=== PATIENT | male | born 1960 | race Caucasian/White ===

== ENCOUNTER 2017-10-13 07:51 | Outpatient (CLI) | payer OTHER ==
[2017-10-13 11:34] LABS: BASOPHILS % (AUTO) 0.6 %; EOSINOPHILS # (AUTO) 0.2 10^3/uL (0.0-0.7); EOSINOPHILS % (AUTO) 2.9 %; HGB - HEMOGLOBIN 15.2 g/dL (14.0-18.0); LYMPHOCYTES # (AUTO) 2.4 10^3/uL (1.5-3.5); LYMPHOCYTES % (AUTO) 39.2 %; MEAN CORPUSCULAR HEMOGLOBIN 30.9 pg (27.0-31.0); MEAN CORPUSCULAR HGB CONC 33.9 g/dL (32.0-36.0); MEAN CORPUSCULAR VOLUME 91.2 fL (80.0-94.0); MEAN PLATELET VOLUME 8.3 fL (7.4-11.4); MONOCYTES # (AUTO) 0.5 10^3/uL (0.0-1.0); MONOCYTES % (AUTO) 8.1 %; NEUTROPHILS # (AUTO) 3.1 10^3/uL (1.5-6.6); NEUTROPHILS % (AUTO) 49.2 %; PLT - PLATELET COUNT 211 10^3/uL (130-450); RED BLOOD COUNT 4.91 10^6/uL (4.70-6.10); RED CELL DISTRIBUTION WIDTH 13.7 % (12.0-15.0); WHITE BLOOD COUNT 6.2 x10^3/uL (4.8-10.8)
[2017-10-13 12:01] LABS: ALKALINE PHOSPHATASE 48 IU/L (42-121); ALT ALANINE AMINOTRANSFERASE 37 IU/L (10-60); AST ASPARTATE AMINOTRANSFERASE 30 IU/L (10-42); BILIRUBIN,TOTAL 0.9 mg/dL (0.2-1.0); BUN - BLOOD UREA NITROGEN 20 mg/dL (6-20); CALCIUM 9.2 mg/dL (8.5-10.3); CARBON DIOXIDE - CO2 29 mmol/L (21-32); CHLORIDE 100 mmol/L (101-111); CHOL/HDL RATIO 4.4 (<5.0); CHOLESTEROL 203 mg/dL; GFR - MDRD 77 (>89); GLUCOSE 108 mg/dL (70-100); HDL CHOLESTEROL 46 mg/dL; LDL CHOLESTEROL,CALCULATED 128 mg/dL; LDL/HDL RATIO 2.8 (<3.6); SODIUM 135 mmol/L (135-145); TOTAL PROTEIN 7.9 g/dL (6.7-8.2); VLDL CHOLESTEROL 29 mg/dL
[2017-10-13 12:23] LABS: HB2 TOTAL 16.6 g/dL; HEMOGLOBIN A1C 0.69 g/dL
== END 2017-10-13 07:52 | disposition home or self-care (01) ==
LOC: LAB.F 07:51
PROVIDERS: ATTEND Nurse Practitioner Family
DX: I10 Essential (primary) hypertension (principal); E78.5 Hyperlipidemia, unspecified; Z86.39 Personal history of other endocrine, nutritional and metabolic disease
CPT/HCPCS: 36415; 80053; 80061; 83036; 83721; 84443; 85025

== ENCOUNTER 2018-09-25 10:52 | Outpatient (CLI) | payer OTHER ==
[2018-09-25 17:57] LABS: ALBUMIN 4.2 g/dL (3.2-5.5); ALBUMIN/GLOBULIN RATIO 1.2 (1.0-2.2); ALKALINE PHOSPHATASE 47 IU/L (42-121); ALT ALANINE AMINOTRANSFERASE 33 IU/L (10-60); AST ASPARTATE AMINOTRANSFERASE 31 IU/L (10-42); BILIRUBIN,TOTAL 0.6 mg/dL (0.2-1.0); BUN - BLOOD UREA NITROGEN 23 mg/dL (6-20); CALCIUM 9.3 mg/dL (8.5-10.3); CARBON DIOXIDE - CO2 27 mmol/L (21-32); CHLORIDE 104 mmol/L (101-111); CHOL/HDL RATIO 3.5 (<5.0); CHOLESTEROL 198 mg/dL; CREATININE 0.9 mg/dL (0.6-1.2); GFR - MDRD 86 (>89); GLUCOSE 110 mg/dL (70-100); HDL CHOLESTEROL 57 mg/dL; LDL CHOLESTEROL,CALCULATED 130 mg/dL; LDL/HDL RATIO 2.3 (<3.6); SODIUM 141 mmol/L (135-145); TOTAL PROTEIN 7.6 g/dL (6.7-8.2); VLDL CHOLESTEROL 11 mg/dL
[2018-09-25 18:01] LABS: HB2 TOTAL 15.4 g/dL; HEMOGLOBIN A1C 0.59 g/dL; HEMOGLOBIN A1C % 5.7 % (4.6-6.2)
== END 2018-09-25 10:53 | disposition home or self-care (01) ==
LOC: LAB.S 10:52
PROVIDERS: ATTEND Internal Medicine
DX: E78.5 Hyperlipidemia, unspecified (principal); R73.02 Impaired glucose tolerance (oral); Z12.5 Encounter for screening for malignant neoplasm of prostate
CPT/HCPCS: 36415; 80053; 80061; 83036; 83721; 84153

== ENCOUNTER 2019-09-16 13:30 | Outpatient (CLI) | payer OTHER | END 2019-09-16 23:59 | disposition home or self-care (01) | LOC: LAB 13:30 | PROVIDERS: ATTEND Registered Nurse | DX: Z11.9 Encounter for screening for infectious and parasitic diseases, unspecified (principal) | CPT/HCPCS: 81599 ==

== ENCOUNTER 2019-09-26 10:34 | Outpatient (CLI) | payer OTHER ==
[2019-09-26 15:36] LABS: ALBUMIN 4.7 g/dL (3.2-5.5); ALBUMIN/GLOBULIN RATIO 1.3 (1.0-2.2); ALKALINE PHOSPHATASE 51 IU/L (42-121); ALT ALANINE AMINOTRANSFERASE 46 IU/L (10-60); AST ASPARTATE AMINOTRANSFERASE 35 IU/L (10-42); BILIRUBIN,TOTAL 1.3 mg/dL (0.2-1.0); BUN - BLOOD UREA NITROGEN 23 mg/dL (6-20); CALCIUM 9.5 mg/dL (8.5-10.3); CARBON DIOXIDE - CO2 26 mmol/L (21-32); CHLORIDE 99 mmol/L (101-111); CHOL/HDL RATIO 5.5 (<5.0); CHOLESTEROL 246 mg/dL; GLUCOSE 94 mg/dL (70-100); HDL CHOLESTEROL 45 mg/dL; LDL CHOLESTEROL,CALCULATED 176 mg/dL; LDL/HDL RATIO 3.9 (<3.6); SODIUM 138 mmol/L (135-145); TOTAL PROTEIN 8.4 g/dL (6.7-8.2); VLDL CHOLESTEROL 25 mg/dL
[2019-09-26 15:37] LABS: HB2 TOTAL 16.4 g/dL; HEMOGLOBIN A1C 0.62 g/dL; HEMOGLOBIN A1C % 5.6 % (4.6-6.2)
== END 2019-09-26 10:35 | disposition home or self-care (01) ==
LOC: LAB.S 10:34
PROVIDERS: ATTEND Internal Medicine
DX: E78.5 Hyperlipidemia, unspecified (principal); R73.02 Impaired glucose tolerance (oral); Z12.5 Encounter for screening for malignant neoplasm of prostate; Z11.9 Encounter for screening for infectious and parasitic diseases, unspecified
CPT/HCPCS: 36415; 80053; 80061; 83036; 83721; 84153

== ENCOUNTER 2019-11-25 10:04 | Day surgery (SDC) | payer OTHER ==
[2019-11-25] MEDS ORDERED: fentaNYL 250 MCG/5 ML VIAL IVP ONE (10:05)
[2019-11-25] MEDS ORDERED: MIDAZOLAM 2 MG/2 ML VIAL IVP ONE (10:05)
[2019-11-25] MEDS ORDERED: LACTATED RINGERS 1,000 ML IV ONE (10:43)
[2019-11-25] MEDS ORDERED: LACTATED RINGERS IV ONE (12:52)
[2019-11-25 13:26] VITALS: BP 127/82
== END 2019-11-25 10:05 | disposition home or self-care (01) ==
LOC: SDS 10:04
PROVIDERS: ATTEND Internal Medicine Gastroenterology
PROC: 0DBN8ZZ Excision of Sigmoid Colon, Via Natural or Artificial Opening Endoscopic (ICD-10-PCS; principal; 2019-11-25 11:15)
DX: Z12.11 Encounter for screening for malignant neoplasm of colon (principal); K63.89 Other specified diseases of intestine; Z87.891 Personal history of nicotine dependence; Z80.3 Family history of malignant neoplasm of breast
CPT/HCPCS: 45380; J3010; J7120

== ENCOUNTER 2019-12-17 06:54 | Outpatient (CLI) | payer OTHER ==
[2019-12-17] MEDS ORDERED: IOVERSOL 320 100 ML VIAL IVP ONE ×2 (07:10→13:46)
[2019-12-17] MEDS ORDERED: IOVERSOL 320 50 ML VIAL ONE (07:10)
[2019-12-17] MEDS ORDERED: IOVERSOL 320 50 ML VIAL PO ONE (13:46)
--- NOTE | 2019-12-17 14:25 | CT Report ---
PROCEDURE: Abdomen/Pelvis W INDICATIONS: APPENDICEAL MASS CONTRAST: IV CONTRAST: Optiray 320 ml: 100 PO CONTRAST: Optiray 320 ml50 TECHNIQUE: After the administration of oral and intravenous contrast, 5 mm thick sections acquired from the diap hragms to the symphysis. 5 mm thick coronal and sagittal reformats were acquired. For radiation dos e reduction, the following was used: automated exposure control, adjustment of mA and/or kV accordin g to patient size. COMPARISON: None. FINDINGS: Image quality: Excellent. ABDOMEN: Lung bases: There is mild dependent atelectasis. Heart size is normal. Solid organs: There is hypoattenuation of the liver compatible with fatty infiltration. Gallbladder a ppears within normal limits without calcified gallstones. Biliary system is non dilated. Pancreas en hances normally. No adrenal nodules. The spleen is normal in size. Kidneys demonstrate no hydronephr osis. Peritoneum and bowel: Bowel loops demonstrate normal wall thickness and caliber. 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 The appendix is nondistended and measures up to 0.8 cm, at the upper limits of norm al. No periappendiceal fat stranding or fluid collections. No appendicoliths. No periappendiceal mass lesions or fluid collections. There is colonic diverticulosis without acute diverticulitis. No free fluid or air. Nodes and vessels: No retroperitoneal or mesenteric adenopathy by size criteria. Aorta and inferior vena cava are normal in size. Miscellaneous: No ventral hernias. PELVIS: Genitourinary: Bladder wall thickness is normal. Miscellaneous: No inguinal hernias or adenopathy. Bones: No suspicious bony lesions. No vertebral body compression fractures. IMPRESSION: 1. No appendiceal distention or periappendiceal mass identified. 2. Fat density along the ileocecal junction compatible with lipomatosis of the ileocecal valve. 3. No discrete pericecal or periappendiceal mass identified. 4. Colonic diverticulosis without acute diverticulitis. Reviewed by: Margarito Capps MD on 12/17/2019 1:23 PM AKEVONNE Approved by: Margarito Capps MD on 12/17/2019 1:23 PM [facility] Station ID: [id number]
== END 2019-12-17 06:55 | disposition home or self-care (01) ==
LOC: LAB 06:54
PROVIDERS: ATTEND Surgery
DX: K38.8 Other specified diseases of appendix (principal); K57.30 Diverticulosis of large intestine without perforation or abscess without bleeding
CPT/HCPCS: 36415; 74177; 82565; Q9967

== ENCOUNTER 2019-12-18 14:56 | Outpatient (CLI) | payer OTHER | END 2019-12-18 14:57 | disposition home or self-care (01) | LOC: NS 14:56 | PROVIDERS: ATTEND Internal Medicine | DX: Z71.3 Dietary counseling and surveillance (principal); E78.00 Pure hypercholesterolemia, unspecified; R73.02 Impaired glucose tolerance (oral); E78.5 Hyperlipidemia, unspecified; I10 Essential (primary) hypertension | CPT/HCPCS: 97802 ==

== ENCOUNTER 2020-01-03 11:30 | Outpatient (CLI) | payer OTHER | END 2020-01-03 11:31 | disposition home or self-care (01) | LOC: COV 11:30 | PROVIDERS: ATTEND Surgery | DX: Z01.812 Encounter for preprocedural laboratory examination (principal); Z20.828 Contact with and (suspected) exposure to other viral communicable diseases; K38.8 Other specified diseases of appendix ==

== ENCOUNTER 2020-01-07 10:55 | Day surgery (SDC) | payer OTHER ==
[~2020-01-07 10:55] MED LIST: CEFAZOLIN SODIUM IN 0.9 % NACL 2 GM/100 ML BAG IV ONE; metroNIDAZOLE 500 MG/100 ML 500 MG/100 ML BAG ONE
[2020-01-07] MEDS ORDERED: ONDANSETRON 4 MG/2 ML VIAL IVP ONE (10:56)
[2020-01-07] MEDS ORDERED: MIDAZOLAM 2 MG/2 ML VIAL IVP ONE (10:56)
[2020-01-07] MEDS ORDERED: PROPOFOL 200 MG/20 ML VIAL IVP ONE (10:56)
[2020-01-07] MEDS ORDERED: LIDOCAINE-MPF 2% 5 ML VIAL IM ONE (10:56)
[2020-01-07] MEDS ORDERED: GLYCOPYRROLATE 1 MG/5 ML VIAL IVP ONE (10:56)
[2020-01-07] MEDS ORDERED: ePHEDrine 50 MG/ML VIAL IVP ONE (10:56)
[2020-01-07] MEDS ORDERED: ACETAMINOPHEN 1,000 MG/100 ML 100 ML IV ONE (10:56)
[2020-01-07] MEDS ORDERED: fentaNYL 100 MCG/2 ML VIAL IVP ONE (10:56)
[2020-01-07] MEDS ORDERED: ROCURONIUM 50 MG/5 ML VIAL IVP ONE (10:56)
[2020-01-07] MEDS ORDERED: DEXAMETHASONE 4 MG/ML VIAL IVP ONE (10:56)
[2020-01-07] MEDS ORDERED: NEOSTIGMINE 1 MG/1 ML 10 ML MDV IVP ONE (10:56)
[2020-01-07] MEDS ORDERED: LACTATED RINGERS 1,000 ML IV ONE ×2 (10:58→14:39)
--- NOTE | 2020-01-07 11:16 | ANESTHESIA ---
Pre-Anesthesia VS, & Labs - Diagnosis appendix tumor - Procedure Laparoscopic appendectomy, possible lap colectomy Vital Signs: Temp Pulse Resp BP Pulse Ox 35.9 C L 72 16 142/81 H 97 01/07/20 11:01 01/07/20 11:01 01/07/20 11:01 01/07/20 11:01 01/07/20 11:01 Height: 6 ft Weight (kg): 98 kg Body Mass Index: 29.2 BMI Classification: Overweight - NPO >8 hours - Lab Results Lab results reviewed: Yes Home Medications and Allergies Home Medications: Ambulatory Orders Ascorbic Acid [Vitamin C] 1,000 mg PO DAILY 12/30/19 Multivitamin 1 each PO DAILY 12/30/19 [place]-3S/Dha/Epa/Fish Oil [Fish Oil 1,200 mg Softgel] 1 each PO DAILY 12/30/19 Lisinopril [Zestril] 20 mg PO DAILY 11/22/19 Simvastatin [Zocor] 10 mg PO DAILY 11/22/19 Ascorbic Acid [Vitamin C] 1,000 mg PO DAILY 12/30/19 Multivitamin 1 each PO DAILY 12/30/19 [place]-3S/Dha/Epa/Fish Oil [Fish Oil 1,200 mg Softgel] 1 each PO DAILY 12/30/19 Allergies/Adverse Reactions: Allergies Allergy/AdvReac Type Severity Reaction Status Date / Time No Known Drug Allergies Allergy Verified 11/22/19 14:28 Anes History & Medical History - Anesthetic History Anesthesia Complications: reports: No previous complications Family history of Anesthesia Complications: Denies Family history of Malignant Hyperthermia: Denies - Medical History Cardiovascular: reports: Hypertension, High cholesterol Pulmonary: reports: None Gastrointestinal: reports: None Urinary: reports: None Musculoskeletal: reports: None Endocrine/Autoimmune: reports: None Skin: reports: None - Surgical History General: Colonoscopy Orthopedic: Arthroscopic surgery Exam General: Alert, Oriented x3, Cooperative, No acute distress Dental: WNL Mouth Openin Fingerbreadth Neck Mobility: Normal Mallampati classification: II Respiratory: Lungs clear, Normal breath sounds, No respiratory distress, No accessory muscle use Cardiovascular: Regular rate, Normal S1, Normal S2, No murmurs Plan Anesthesia Type: General Consent for Procedure(s) Verified and Reviewed: Yes Code Status: Attempt Resuscitation ASA classification: 2-Mild systemic disease Is this case an emergency?: No
[2020-01-07] MEDS ORDERED: fentaNYL 100 MCG/2 ML VIAL IVP PRN (12:15)
[2020-01-07] MEDS ORDERED: METOCLOPRAMIDE 10 MG/2 ML VIAL IVP PRN (12:15)
[2020-01-07] MEDS ORDERED: HYDROmorphone 0.5 MG/0.5 ML SYRINGE IVP PRN (12:15)
[2020-01-07] MEDS ORDERED: ONDANSETRON 4 MG/2 ML VIAL IVP PRN ×2 (12:15→14:43)
[2020-01-07] MEDS ORDERED: ATROPINE ABBOJECT 1 MG/10 ML SYRINGE IVP PRN (12:15)
[2020-01-07] MEDS ORDERED: NALOXONE 0.4 MG/ML VIAL IVP PRN (12:15)
[2020-01-07] MEDS ORDERED: ePHEDrine 50 MG/ML VIAL IVP PRN (12:15)
[2020-01-07] MEDS ORDERED: MORPHINE 2 MG/ML CARPUJECT IVP PRN (12:15)
[2020-01-07] MEDS ORDERED: BUPIVACAINE 0.25% PF 30 ML VIAL ONE ×2 (12:35→13:39)
[2020-01-07] MEDS ORDERED: LACTATED RINGERS 1,000 ML IV SCH (13:00)
[2020-01-07] MEDS ORDERED: BUPIVACAINE 0.25% PF 30 ML VIAL SUBQ ONE ×2 (13:26)
[2020-01-07] MEDS ORDERED: HYDROcod/ACETAM 5/325 MG TABLET PO PRN (14:43)
--- NOTE | 2020-01-07 14:48 | OPERATIVE REPORT ---
Operative Report - General Procedure Date: 01/07/20 Planned Procedure: appendectomy with partial cecectomy, possible colectomy Pre-Op Diagnosis: mass base of appendix Procedure Performed: appendectomy with partial cecectomy Post Op Diagnosis: same. smooth mass within the specimen - Procedure Note Primary Surgeon: taya lopez Anesthesia Technique: General ET tube, Local Pathology: specimen sent Estimated Blood Loss (mL): 25 Drain/Tube Type: Other (none) Findings: as above. smooth mass base of appendix Complications: none
[2020-01-07 15:45] VITALS: BP 129/78
--- NOTE | 2020-01-07 16:12 | ANESTHESIA POST OP EVALUATION ---
Anesthesia Post Eval - Post Anesthesia Eval Vitals: Last Vital Signs Temp 36.0 C L 01/07/20 15:13 Pulse 72 01/07/20 15:44 Resp 15 01/07/20 15:44 BP 129/78 01/07/20 15:44 Pulse Ox 93 01/07/20 15:44 CV Function Including HR & BP: positive: Stable Pain Control: positive: Satisfactory Nausea & Vomiting: positive: Negative Mental Status: positive: Baseline Respiratory Status: Airway Patent Hydration Status: Satisfactory Anesthesia Complications: positive: None
--- NOTE | 2020-01-07 18:49 | OPERATIVE REPORT ---
DATE OF SERVICE: 01/07/2020 Physician: Rex Zamudio MD PREOPERATIVE DIAGNOSIS: Mass at base of appendix by recent screening colonoscopy. POSTOPERATIVE DIAGNOSIS: Mass at the base of the appendix. PROCEDURE PERFORMED: Laparoscopic appendectomy with partial cecectomy. SURGEON: Rex Zamudio MD SHIP DESIGN TEACHER: None. ANESTHESIA 1. General endotracheal anesthesia. 2. Local anesthesia with Marcaine. COMPLICATIONS: None. SPECIMEN: Appendix with portion of the cecum sent permanent. ESTIMATED BLOOD LOSS: 25 mL DRAINS: None. INDICATIONS FOR PROCEDURE: Patient is a healthy 59-year-old gentleman who recently underwent screening colonoscopy. He had the appearance of a mass at the base of the appendix that was biopsied. Biopsy was concerning for possible neuroendocrine tumor. He had a CT scan, which was unremarkable. He presents for exploratory laparoscopy, possible laparoscopic appendectomy, possible right colectomy. Risks discussed, and alternatives discussed. All questions answered and consent obtained. DESCRIPTION OF PROCEDURE: Patient was properly identified and brought to the operating room and placed in supine position. He voided prior to surgery. General endotracheal anesthesia was induced. Sequential compression devices were placed. He was prepped and draped in a sterile fashion, given preoperative antibiotics. Local anesthetic was given to incision areas. He had a prior umbilical hernia repair. An incision was made approximately 2 cm caudad and 4 cm left lateral of his umbilicus. Dissection proceeded bluntly down to the fascia. The fascia was incised, lifted upwards and abdomen entered with the Veress needle. An 11 mm trocar was placed was placed with 30-degree scope. There was no evidence of injury from Veress needle or trocar placement. Under direct vision, a 5 mm trocar was placed in the right upper quadrant, and a 5 mm trocar was placed suprapubically. Appendix was grossly normal. There is no evidence of metastatic disease. The lateral peritoneal attachments to the appendix were taken down with hook cautery. On further inspection, there did appear to be a smooth mass at the base of the appendix or adjacent to the cecum. The terminal ileum was partially mobilized further away from the cecum and the appendix by taking down its peritoneal attachments largely with blunt dissection or minimal use of cautery. A plane was created between the mesoappendix and the appendix. The 11 mm trocar was exchanged for a 12 mm trocar and 5 mm scope used. The mesoappendix was divided with an Endo-JULES vascular load. The appendix with a small portion of the cecum was divided close to the terminal ileum; however, without obstructing the terminal ileum. An additional portion of the cecum was obtained with additional Endo-JULES intestinal load. There was slight bleeding at the staple line, which was very lightly cauterized. There were no apparent complications. The abdomen was thoroughly irrigated. Specimen was brought out. He had what appeared to be a smooth, fairly mobile mass within the specimen at the cecum/appendix junction. Specimen was sent permanent for pathology. Trocars were removed under direct vision and CO2 evacuated. Fascia at the larger trocar site was closed with a [id number] 0 Vicryl suture. Skin was closed with buried interrupted 4-0 Monocryl. Dressings were applied. He tolerated the procedure well. Plan is depending on final pathology. TD: 01/07/2020 15:09 TERRY
== END 2020-01-07 10:56 | disposition home or self-care (01) ==
LOC: SDS 10:55
PROVIDERS: ATTEND Surgery
PROC: 0DTJ4ZZ Resection of Appendix, Percutaneous Endoscopic Approach (ICD-10-PCS; principal; 2020-01-07 12:00)
DX: K38.8 Other specified diseases of appendix (principal); I10 Essential (primary) hypertension; E78.5 Hyperlipidemia, unspecified; F17.210 Nicotine dependence, cigarettes, uncomplicated; E66.3 Overweight; Z68.29 Body mass index [BMI] 29.0-29.9, adult
CPT/HCPCS: 44970; J0131; J0690; J7120

== ENCOUNTER 2020-12-23 09:29 | Outpatient (CLI) | payer OTHER ==
[2020-12-23 14:59] LABS: BASOPHILS % (AUTO) 0.5 %; EOSINOPHILS # (AUTO) 0.1 10^3/uL (0.0-0.7); EOSINOPHILS % (AUTO) 1.4 %; HCT - HEMATOCRIT 48.1 % (42.0-52.0); HGB - HEMOGLOBIN 15.9 g/dL (14.0-18.0); LYMPHOCYTES # (AUTO) 2.7 10^3/uL (1.5-3.5); LYMPHOCYTES % (AUTO) 45.8 %; MEAN CORPUSCULAR HEMOGLOBIN 30.9 pg (27.0-31.0); MEAN CORPUSCULAR HGB CONC 33.1 g/dL (32.0-36.0); MEAN CORPUSCULAR VOLUME 93.4 fL (80.0-94.0); MEAN PLATELET VOLUME 9.8 fL (7.4-11.4); MONOCYTES # (AUTO) 0.5 10^3/uL (0.0-1.0); MONOCYTES % (AUTO) 8.9 %; NEUTROPHILS # (AUTO) 2.5 10^3/uL (1.5-6.6); NEUTROPHILS % (AUTO) 43.2 %; PLT - PLATELET COUNT 228 10^3/uL (130-450); RED BLOOD COUNT 5.15 10^6/uL (4.70-6.10); RED CELL DISTRIBUTION WIDTH 13.2 % (12.0-15.0); WHITE BLOOD COUNT 5.8 x10^3/uL (4.8-10.8)
[2020-12-23 15:43] LABS: ALBUMIN 4.6 g/dL (3.2-5.5); ALBUMIN/GLOBULIN RATIO 1.2 (1.0-2.2); ALKALINE PHOSPHATASE 49 IU/L (42-121); ALT ALANINE AMINOTRANSFERASE 39 IU/L (10-60); AST ASPARTATE AMINOTRANSFERASE 26 IU/L (10-42); BILIRUBIN,TOTAL 1.1 mg/dL (0.2-1.0); BUN - BLOOD UREA NITROGEN 19 mg/dL (6-20); CALCIUM 9.7 mg/dL (8.5-10.3); CARBON DIOXIDE - CO2 30 mmol/L (21-32); CHLORIDE 100 mmol/L (101-111); CHOL/HDL RATIO 4.5 (<5.0); CHOLESTEROL 224 mg/dL; CREATININE 1.1 mg/dL (0.6-1.2); GFR - MDRD 68 (>89); GLUCOSE 110 mg/dL (70-100); HDL CHOLESTEROL 50 mg/dL; LDL CHOLESTEROL,CALCULATED 136 mg/dL; LDL/HDL RATIO 2.7 (<3.6); POTASSIUM 4.6 mmol/L (3.5-5.0); SODIUM 138 mmol/L (135-145); TOTAL PROTEIN 8.3 g/dL (6.7-8.2); TRIGLYCERIDES 189 mg/dL; URIC ACID 5.4 mg/dL (2.6-7.2); VLDL CHOLESTEROL 38 mg/dL
[2020-12-23 15:58] LABS: CRP - C-REACTIVE PROTEIN < 1.0 mg/dL (0-1.0)
[2020-12-23 18:29] LABS: RHEUMATOID FACTOR NEGATIVE (Negative)
[2020-12-23 20:19] LABS: ESTIMATED AVERAGE GLUCOSE 123 mg/dL (70-100); HEMOGLOBIN A1c% 5.9 % (4.27-6.07)
== END 2020-12-23 09:30 | disposition home or self-care (01) ==
LOC: LAB.S 09:29
PROVIDERS: ATTEND Internal Medicine
DX: I10 Essential (primary) hypertension (principal); E78.5 Hyperlipidemia, unspecified; R73.02 Impaired glucose tolerance (oral); M25.50 Pain in unspecified joint
CPT/HCPCS: 36415; 80053; 80061; 83036; 83721; 84550; 85025; 85651; 86140; 86200; 86430

== ENCOUNTER 2021-01-13 09:08 | Outpatient (CLI) | payer OTHER ==
[2021-01-13 09:57] VITALS: BP 121/76
--- NOTE | 2021-01-13 09:57 | SLEEP CARE CONSULTATION ---
Information from patient questionnaire entered by Nikki Flor MA. I have reviewed and concur with the information entered by Nikki Flor MA. This document represents the service I personally performed and the decisions made by , Iram Ramirez ARNP. History of Present Illness Service Date and Time: 01/13/2021 0908 Reason for Visit: New patient Chief Complaint: reports: Snoring, Observed pauses in breathing, Frequent awakenings at night Date of Onset: 10 years ( 2010) Usual bedtime: 10 pm Time it takes to fall asleep: 15 - 20 minutes Snores at night: Yes Observed to quit breathing while asleep: Yes Sleeps alone due to snoring: No Number of times waking at night: 2-3 Reasons for waking at night: reports: Snoring, Bathroom, Other (unknown reasons, 3 times a week) Toss, Turn, or Twitch while sleeping: Yes Recalls having dreams: Yes Usually gets out of bed at: 0600, unless he wakes up about 4-5 and cannot go back to sleep Feels refreshed in the morning: Yes Morning headache: No Sleepy or fatigued during the day: No Ever fallen asleep while driving: No Takes day naps: No Dreams during day naps: No Prior sleep studies: No Additional HPI information: I had the pleasure of seeing BETTY ACOSTA today regarding the possibility of him having a sleep disorder. His current complaints are snoring, observed pauses in breathing and frequent night awakening. He has woken up and heard snoring. He does wake up with dryness in back of throat. His has told him he snores and stops breathing in his sleep. She wears earplugs and still sleeps in same room. He feels that he is rested in the mornings and not too tired throughout the day unless he wakes up early. He can wake up between 4-5 AM and be unable to fall back to sleep. He denies headaches in the morning or drowsy driving. 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 Patient is and lives in [place]. Have you smoked in the past 12 months: Yes (smokes occasional cigars, 5 a month on average) Cigarettes per day (20/pack): 20 Years of smokin Quit date: 1990 Smoking Pack Years: 10.0 Alcohol use: Yes Alcohol amount and frequency: 1/day; usually on weekends Caffeine use: Yes Caffeine amount and frequency: 3 cups coffee/day Family History Family history of sleep disordered breathing: No Allergies and Home Medications Drug allergies reviewed: Yes (NKDA) Home medication list reviewed: Yes Allergy and home medication list: Lisinopril Simvastatin Review of Systems Weight gain over past 5 years: 5 Cardiovascular: reports: high blood pressure Gastrointestinal: reports: heartburn (occasional) Neurological: denies: headaches Psychiatric: denies: anxiety, depression Ear/Nose/Throat: reports: dry mouth/throat, wisdom teeth removed. denies: injury to nose, tonsillectomy Endocrine: denies: thyroid disease Immunologic: denies: allergies to food or environment Physical Exam Vital signs obtained and entered by: Sheri Flor CMA Blood Pressure: 121/76 (left) Cuff size: wrist Heart Rate: 74 O2 Saturation: 94 (with mask) Height: 6 ft Weight: 224 lb (without boots) Body Mass Index: 30.4 BMI Classification: Obese Neck circumference: 16.5 (inches) Nostrils: patent to airflow Mouth and throat: narrow oropharynx Soft palate: long Hard palate: normal Uvula: normal Uvula visualization: 50% Mallampati Class II Tongue: enlarged in size with teeth tam on lateral edges Tonsils: small Neck: normal w/o lymphadenopathy or thyromegaly Heart: regular rate and rhythm Lungs: clear bilaterally Impression and Plan 1. Suspected Obstructive Sleep Apnea-Hypopnea Syndrome, as suggested by a history of loud and irregular snoring, observed cessation of breath while asleep and frequent awakening during the night. Narrow oropharynx and obesity are common predisposing factors for obstructive sleep apnea-hypopnea syndrome. I recommend proceeding to polysomnography to confirm the diagnosis and to assess severity. If the patient has significant sleep disordered breathing, a manual CPAP titration study will also be performed to find the optimal treatment pressure. I informed the patient of what the sleep studies involve and after some discussion, obtained agreement to proceed. The pathophysiology of obstructive sleep apnea-hypopnea syndrome was discussed with the patient and health risks of cardiovascular and cerebrovascular disease if not treated. AAS brochure for obstructive sleep apnea-hypopnea syndrome given and reviewed. 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 Patient agreed to plan. * Schedule polysomnography +- manual CPAP titration study and return in 1-2 weeks after the study to discuss result and initiate therapy. * Avoid long distance driving or driving when feeling sleepy. * Avoid alcohol, sedative and muscle relaxant around bedtime. * Attempt to lose weight. * Review instructions provided by trained office staff on how to prepare for the sleep study. * Return for follow-up after sleep study completed. Counseling Topics: Weight loss health impact Visit Type: In Office Time Spent with Patient (minutes): 30 Provider Statement: I spent 100% of the Face to Face Visit with the patient with greater than 50% spent counseling the patient and coordination of care.
== END 2021-01-13 09:09 | disposition home or self-care (01) ==
LOC: SC 09:08
PROVIDERS: ATTEND Nurse Practitioner Family
DX: R06.81 Apnea, not elsewhere classified (principal); G47.8 Other sleep disorders; R06.83 Snoring; E66.9 Obesity, unspecified; Z68.30 Body mass index [BMI] 30.0-30.9, adult
CPT/HCPCS: 99203; 99212

== ENCOUNTER 2021-03-10 12:39 | Outpatient (CLI) | payer OTHER | END 2021-03-10 12:40 | disposition home or self-care (01) | LOC: SC 12:39 | PROVIDERS: ATTEND Nurse Practitioner Family | DX: G47.33 Obstructive sleep apnea (adult) (pediatric) (principal); R09.02 Hypoxemia; E66.9 Obesity, unspecified; Z68.30 Body mass index [BMI] 30.0-30.9, adult | CPT/HCPCS: 95806 ==

== ENCOUNTER 2021-03-26 13:10 | Outpatient (CLI) | payer OTHER ==
[2021-03-26 13:55] VITALS: BP 130/72
--- NOTE | 2021-03-26 13:56 | SLEEP CARE CONSULTATION ---
Information from patient questionnaire entered by Nikki De Leon MA. I have reviewed and concur with the information entered by Nikki De Leon MA. This document represents the service I personally performed and the decisions made by , Iram Ramirez ARNP. History of Present Illness Service Date and Time: 03/26/2021 1310 Initial [place] Sleepiness Scale score: 9 (2020) Current [place] Sleepiness Scale score: 5 (2021) Additional HPI information: BETTY ACOSTA returns for follow up and results of the recently performed home sleep study. I explained the pathophysiology behind obstructive sleep apnea. We then spent quite a bit of time discussing different treatment options. For mild obstructive sleep apnea, surgery and oral appliance are alternatives to nasal CPAP therapy but in moderate or severe cases, nasal CPAP is the most effective and reliable treatment. Because apnea is primarily in supine position, then positional management therapy could be effective. Methods discussed such as positioning with pillows, using a T-shirt with tennis balls in the back, and shown commercial products that have a pillow format on back to prevent supine sleep. I reviewed the impact of weight changes on sleep apnea and strongly recommended losing weight. Patient was cautioned about risks of drowsy driving until sleepiness symptoms resolve. Sleep Study - Results Type of Sleep Study: Home sleep study Polysomnography/Home Sleep Study results: Physician Impression: The quality of the study is good. The length of the study is adequate (> 240 minutes). Please also see the tabulated and graphic data. 1. Obstructive Sleep Apnea-Hypopnea (ICD-10 G47.33), mild, with an AHI of 7.3/hr and bety SaO2 of 84%. During the study, the patient had 27 apneas (27 obstructive, 0 central, 0 mixed) and 27 hypopneas. The longest episode lasted 110.5 seconds. The patient did not sleep supine during this study. 2. Hypoxemia (ICD-10 R09.02), mild, with the lowest oxygen saturation of 84 % and 1.9 minutes with SaO2 under 90%. Baseline oxygen saturation was normal (Average oxygen saturation was 93%). Allergies and Home Medications Known drug allergies: No Drug allergies reviewed: Yes Home medication list reviewed: Yes (no changes) Review of Systems Review of systems same as previous: Yes (no changes) Physical Exam Vital signs obtained and entered by: Dianna DE LEON CMA AAMARCELLUS Blood Pressure: 130/72 (left, Pulse 72) Cuff size: wrist Heart Rate: 71 O2 Saturation: 96 (with paper mask) Height: 6 ft Weight: 219 lb (with clothes) Body Mass Index: 29.7 BMI Classification: Overweight Impression and Plan 1. Obstructive Sleep Apnea-Hypopnea Syndrome, mild, with lowest oxygen saturation of 84%. Obviously this is possibly the cause of the patients symptoms of unrefreshed sleep, and excessive daytime sleepiness. Positive pressure therapy could benefit hypertension. After much discussion of therapy kaycee nichols, the patient has chosen to try an oral appliance to treat their apnea. A 3 month follow up will be made to see if appliance has reduced symptoms. If so, another polysomnography will be ordered with use of the oral appliance to check efficacy in reducing apnea. 2. Hypoxemia, mild, with the lowest oxygen saturation of 84 % and 1.9 minutes with SaO2 under 90%. His baseline oxygen saturation was normal with an average oxygen saturation of 93%. * Oral appliance * Attempt to lose weight. * Avoid alcohol consumption near bedtime. * The patient is again cautioned about driving until sleepiness completely resolves. * Return one month after oral appliance obtained. I will assess response to therapy at that time. Counseling Topics: Weight loss health impact Visit Type: In Office Time Spent with Patient (minutes): 20 Provider Statement: I spent 100% of the Face to Face Visit with the patient with greater than 50% spent counseling the patient and coordination of care.
== END 2021-03-26 13:11 | disposition home or self-care (01) ==
LOC: SC 13:10
PROVIDERS: ATTEND Nurse Practitioner Family
DX: G47.33 Obstructive sleep apnea (adult) (pediatric) (principal); R09.02 Hypoxemia
CPT/HCPCS: 99212; 99213

== ENCOUNTER 2021-04-30 09:31 | Day surgery (SDC) | payer OTHER ==
[2021-04-30] MEDS ORDERED: LACTATED RINGERS 1,000 ML IV ONE ×2 (09:35→11:15)
[2021-04-30] MEDS ORDERED: GLYCOPYRROLATE 1 MG/5 ML VIAL ONE (09:53)
[2021-04-30] MEDS ORDERED: PROPOFOL 500 MG/50 ML 500 MG/50 ML VIAL ONE (09:58)
--- NOTE | 2021-04-30 10:11 | ANESTHESIA ---
Pre-Anesthesia VS, & Labs - Diagnosis abnormal colon tissue - Procedure colonoscopy Height: 6 ft Weight (kg): 99 kg Body Mass Index: 29.6 BMI Classification: Overweight - NPO >8 hours Home Medications and Allergies Lisinopril [Zestril] 20 mg PO DAILY 11/22/19 Simvastatin [Zocor] 10 mg PO DAILY 11/22/19 Allergies/Adverse Reactions: Allergies Allergy/AdvReac Type Severity Reaction Status Date / Time No Known Drug Allergies Allergy Verified 04/29/21 13:15 Anes History & Medical History - Anesthetic History Anesthesia Complications: reports: No previous complications - Medical History Cardiovascular: reports: Hypertension, High cholesterol Pulmonary: reports: None Gastrointestinal: reports: None Urinary: reports: None Musculoskeletal: reports: None Endocrine/Autoimmune: reports: None Skin: reports: None History of Cancer?: No - Surgical History General: reports: Appendectomy, Other Orthopedic: reports: Arthroscopic surgery Exam General: Alert, Oriented x3 Dental: WNL Mouth Opening: Greater than 4 Fingerbreadths Mallampati classification: I Thyromental Distance: less than 4 cm Respiratory: Lungs clear Cardiovascular: Regular rate Plan Anesthesia Type: Total IV Consent for Procedure(s) Verified and Reviewed: Yes Code Status: Attempt Resuscitation ASA classification: 2-Mild systemic disease Is this case an emergency?: No
[2021-04-30] MEDS ORDERED: PROPOFOL 200 MG/20 ML VIAL IVP ONE (11:07)
[2021-04-30 11:51] VITALS: BP 132/78
--- NOTE | 2021-04-30 13:41 | ANESTHESIA POST OP EVALUATION ---
Anesthesia Post Eval - Post Anesthesia Eval Vitals: Last Vital Signs Temp 36.4 C L 04/30/21 11:40 Pulse 77 04/30/21 11:40 Resp 15 04/30/21 11:40 BP 132/78 H 04/30/21 11:40 Pulse Ox 96 04/30/21 11:40 CV Function Including HR & BP: Stable Pain Control: Satisfactory Nausea & Vomiting: Negative Mental Status: Baseline Respiratory Status: Airway Patent Hydration Status: Satisfactory Anesthesia Complications: None
== END 2021-04-30 09:32 | disposition home or self-care (01) ==
LOC: SDS 09:31
PROVIDERS: ATTEND Surgery
DX: K38.8 Other specified diseases of appendix (principal); I10 Essential (primary) hypertension
CPT/HCPCS: 45378; J7120

== ENCOUNTER 2022-11-08 07:55 | Outpatient (CLI) | payer OTHER ==
[2022-11-08 14:55] LABS: BASOPHILS % (AUTO) 0.5 %; EOSINOPHILS # (AUTO) 0.1 10^3/uL (0.0-0.7); EOSINOPHILS % (AUTO) 2.4 %; HCT - HEMATOCRIT 45.2 % (42.0-52.0); HGB - HEMOGLOBIN 14.9 g/dL (14.0-18.0); LYMPHOCYTES # (AUTO) 2.6 10^3/uL (1.5-3.5); LYMPHOCYTES % (AUTO) 44.2 %; MEAN CORPUSCULAR HEMOGLOBIN 30.5 pg (27.0-31.0); MEAN CORPUSCULAR VOLUME 92.4 fL (80.0-94.0); MEAN PLATELET VOLUME 9.9 fL (7.4-11.4); MONOCYTES # (AUTO) 0.6 10^3/uL (0.0-1.0); MONOCYTES % (AUTO) 9.5 %; NEUTROPHILS # (AUTO) 2.5 10^3/uL (1.5-6.6); NEUTROPHILS % (AUTO) 43.2 %; PLT - PLATELET COUNT 213 10^3/uL (130-450); RED BLOOD COUNT 4.89 10^6/uL (4.70-6.10); RED CELL DISTRIBUTION WIDTH 13.1 % (12.0-15.0); WHITE BLOOD COUNT 5.8 x10^3/uL (4.8-10.8)
[2022-11-08 15:32] LABS: ALBUMIN 4.5 g/dL (3.2-5.5); ALBUMIN/GLOBULIN RATIO 1.7 (1.0-2.2); ALKALINE PHOSPHATASE 56 IU/L (42-121); ALT ALANINE AMINOTRANSFERASE 26 IU/L (10-60); AST ASPARTATE AMINOTRANSFERASE 21 IU/L (10-42); BILIRUBIN,TOTAL 0.6 mg/dL (0.2-1.0); BUN - BLOOD UREA NITROGEN 20 mg/dL (6-20); CALCIUM 9.5 mg/dL (8.5-10.3); CARBON DIOXIDE - CO2 27 mmol/L (21-32); CHLORIDE 105 mmol/L (101-111); CHOL/HDL RATIO 4.4 (<5.0); CHOLESTEROL 181 mg/dL; GFR - MDRD 75 (>89); GLUCOSE 119 mg/dL (74-104); HDL CHOLESTEROL 41 mg/dL; LDL CHOLESTEROL,CALCULATED 108 mg/dL; LDL/HDL RATIO 2.6 (<3.6); POTASSIUM 4.2 mmol/L (3.5-4.5); SODIUM 138 mmol/L (135-145); TOTAL PROTEIN 7.2 g/dL (6.4-8.9); TRIGLYCERIDES 158 mg/dL (48-352); VLDL CHOLESTEROL 32 mg/dL
[2022-11-08 15:44] LABS: THYROID STIMULATING HORMONE 1.45 uIU/mL (0.34-5.60)
== END 2022-11-08 07:56 | disposition home or self-care (01) ==
LOC: LAB.S 07:55
PROVIDERS: ATTEND Nurse Practitioner Family
DX: I10 Essential (primary) hypertension (principal); E78.5 Hyperlipidemia, unspecified; Z12.5 Encounter for screening for malignant neoplasm of prostate
CPT/HCPCS: 36415; 80053; 80061; 83721; 84153; 84443; 85025